=== PATIENT | male | born 1985 | race Caucasian/White ===

== ENCOUNTER 2016-12-21 23:44 | Emergency (ER) | payer OTHER ==
[~2016-12-21] VITALS: Ht 175.3 cm; Wt 77.0 kg
[~2016-12-21 23:44] MED LIST: ATARAX,VISTARIL25 MG PO; DAKINS SOLUTIO473 ML TP; DICLOXACILLIN500 MG PO; ENDOCET 5-3251 EACH PO; KEFLEX500 MG PO; MOTRIN600 MG PO; PEPCID20 MG PO; PREDNISONE20 MG PO; TYLENOL EXTRA500 MG PO
[2016-12-21 23:51] VITALS: BP 150/96
[2016-12-22 00:15] LABS: HEMATOCRIT 43.7 % (38.0-50.0); MCH 30.4 PG (29.0-34.0); MCHC 33.2 G/DL (30.0-36.0); MCV 91.6 FL (86-99); MEAN PLAT.VOLUME 8.7 uM^3 (9.0-12.4); PLATELET COUNT 210 K/uL (156-360); RBC DIS.WIDTH-CV 13.1 % (11.8-14.6); RBC DIS.WIDTH-SD 43.9 % (39-53); RED BLOOD COUNT 4.77 M/uL (4.00-5.50); WHITE BLOOD COUNT 11.5 K/uL (4.1-10.2)
[2016-12-22 00:24] LABS: CHLORIDE 103 mEq/L (99-109); POTASSIUM 2.7 mEq/L (3.7-5.4); SODIUM 137 mEq/L (136-147)
[2016-12-22 00:27] LABS: GLUCOSE 174 mg/dL (70-99)
[2016-12-22 00:28] LABS: ANION GAP 10 MEQ/L (2-14)
[2016-12-22 00:29] LABS: TOTAL BILIRUBIN 0.9 mg/dL (0.0-1.0)
[2016-12-22 00:30] LABS: ALKALINE PHOSPHATASE 63 IU/L (3-129); SERUM ETHYL ALCOHOL < 10 mg/dL
[2016-12-22 00:31] LABS: GFR ESTIMATE (CALCULATED) > 59 mL/min/
[2016-12-22 00:32] LABS: UREA NITROGEN (BUN) 6 mg/dL (9-23)
[2016-12-22 02:27] LABS: ADD MIUA? YES; BILIRUBIN NEGATIVE; BLOOD MODERATE; COLOR YELLOW ((YELLOW)); GLUCOSE (STRIP) NEGATIVE; KETONES 5; LEUKOCYTES NEGATIVE; NITRITE NEGATIVE; PROTEIN (STRIP) NEGATIVE; SPECIFIC GRAVITY 1.014 (1.000-1.030); UROBILINOGEN 0.2 MG/DL (0.2-1.0)
[2016-12-22 02:33] LABS: BACTERIA RARE /HPF; EPITHELIAL CELLS RARE /HPF; HYALINE CASTS 0-5 /LPF; MUCUS TRACE /LPF; RED BLOOD CELLS 0-5 /HPF (0-5); WHITE BLOOD CELLS 0-5 /HPF (0-5)
[2016-12-22 02:39] LABS: COCAINE PRESUMPTIVE POSITIVE (150 ng/mL); METHAMPHETAMINE PRESUMPTIVE POSITIVE (500 ng/mL); OPIATES (MORPHINE) PRESUMPTIVE POSITIVE (100 ng/mL); PHENCYCLIDINE NEGATIVE (25 ng/mL); THC CANNABINOIDS PRESUMPTIVE POSITIVE (50 ng/mL)
[2016-12-22 02:40] LABS: ADD MEDTOX COMMENT Y; AMPHETAMINE PRESUMPTIVE POSITIVE (500 ng/mL); BARBITURATES NEGATIVE (200 ng/mL); BENZODIAZEPINES NEGATIVE (150 ng/mL); INTERNAL CONTROLS VALID? YES; METHADONE NEGATIVE (200 ng/mL); OXYCODONE NEGATIVE (100 ng/mL); PROPOXYPHENE NEGATIVE (300 ng/mL); TRICYCLIC ANTIDEPRESSANTS NEGATIVE (300 ng/mL)
[2016-12-22 03:26] LABS: CREATININE 0.8 mg/dL (0.6-1.3); POTASSIUM 3.8 mEq/L (3.7-5.4)
== END 2016-12-22 03:41 ==
LOC: EME → EDBD 23:44 → EME 12-22 03:41
PROVIDERS: Emergency Medicine
DX: T40.1X1A Poisoning by heroin, accidental (unintentional), initial encounter (principal); E87.6 Hypokalemia; F19.10 Other psychoactive substance abuse, uncomplicated; F17.200 Nicotine dependence, unspecified, uncomplicated
CPT/HCPCS: 80047; 80053; 81003; 84999; 85027; 93005; G0480; J2310; J3480; J7030